=== PATIENT | female | born 1955 | race Caucasian/White ===

== ENCOUNTER 2021-02-24 14:03 | Outpatient (CLI) | payer BC, SELFPAY | END 2021-02-24 14:04 | disposition home or self-care (01) | LOC: ANHAUDIO 14:04 | PROVIDERS: PCP Family Medicine Adolescent Medicine; Visit Provider Family Medicine Adolescent Medicine | DX: H90.3 Sensorineural hearing loss, bilateral (principal) | CPT/HCPCS: 92557; 92567 ==

== ENCOUNTER → 2021-04-10 16:57 | Outpatient (CLI) | payer BC, SELFPAY ==
--- NOTE | ~2021-04-10 | MM_ITS ---
EXAMINATION: MM screening [facility] w [facility] HISTORY: Screening mammogram TECHNIQUE: Craniocaudal and mediolateral oblique 3-D tomosynthesis images were obtained and synthetic 2-D images were generated. CAD analysis was submitted and interpreted. COMPARISON: 03/19/2018, 03/31/2016 bilateral digital screening mammogram examinations BREAST PARENCHYMAL COMPOSITION: There are scattered areas of fibroglandular density. FINDINGS: Stable mild fibroglandular asymmetry. There is no evidence of suspicious mass, calcificatio n, or architectural distortion to suggest malignancy in either breast. There has been no suspicious i nterval change. IMPRESSION: 1. No mammographic evidence of malignancy. 2. Recommend routine screening mammography in one year. BI-RADS Category 2: Benign finding(s). Reviewed, dictated and finalized at location A.
== END ==
PROVIDERS: PCP Family Medicine Adolescent Medicine; Visit Provider Family Medicine Adolescent Medicine
DX: Z12.31 Encounter for screening mammogram for malignant neoplasm of breast (principal)
CPT/HCPCS: 77063; 77067

== ENCOUNTER 2022-06-03 14:35 | Outpatient (CLI) | payer BC, SELFPAY | END 2022-06-03 14:36 | disposition home or self-care (01) | LOC: ANHAUDIO 14:36 | PROVIDERS: PCP Family Medicine Adolescent Medicine; Visit Provider Physician Assistant | DX: H90.3 Sensorineural hearing loss, bilateral (principal) | CPT/HCPCS: 92557; 92567 ==

== ENCOUNTER → 2022-08-06 15:52 | Outpatient (CLI) | payer BC, SELFPAY ==
--- NOTE | ~2022-08-06 | MM_ITS ---
EXAMINATION: MM screening [facility] BI w [place] HISTORY: Screening TECHNIQUE: Craniocaudal and mediolateral oblique 3-D tomosynthesis images were obtained and synthetic 2-D images were generated. CAD analysis was submitted and interpreted. COMPARISON: Comparison to multiple prior studies sequentially, with oldest reviewed study dated 05/28. BREAST PARENCHYMAL COMPOSITION: There are scattered areas of fibroglandular density. FINDINGS: There is no evidence of suspicious mass, calcification, or architectural distortion to sugg est malignancy in either breast. There has been no suspicious interval change. IMPRESSION: 1. No mammographic evidence of malignancy. 2. Recommend routine screening mammography in one year. BI-RADS Category 1: Negative Reviewed, dictated and finalized at location A.
== END ==
PROVIDERS: PCP Family Medicine Adolescent Medicine; Visit Provider Family Medicine Adolescent Medicine
DX: Z12.31 Encounter for screening mammogram for malignant neoplasm of breast (principal)
CPT/HCPCS: 77063; 77067

== ENCOUNTER 2025-08-08 14:32 | Outpatient (CLI) | payer MEDICARE, SELFPAY ==
--- NOTE | ~2025-08-08 | MM_ITS ---
EXAMINATION: screening [facility] BI w [place] INDICATION: Asymptomatic, referred for screening mammogram COMPARISON: 08/06/2022 through 03/31/2016 TECHNIQUE: Digital Breast Tomosynthesis CC, MLO views of Both breasts were obtained with computer-aided detection to assist in interpretation of the study. FINDINGS: There are scattered areas of fibroglandular density. There is a group of microcalcifications in the outer central left breast at middle third. Elsewhere, there are no mammographic features of malignancy. IMPRESSION: 1. Left breast Incompletely characterized group of calcifications. 2. No evidence of malignancy in the Right breast. RECOMMENDATION: Left breast Diagnostic mammogram with true lateral, and appropriate magnification views. BI-RADS Category 0: Incomplete: Needs additional imaging evaluation. Reviewed, dictated and finalized at location B. IMPRESSION: 1. Left breast Incompletely characterized group of calcifications. 2. No evidence of malignancy in the Right breast. RECOMMENDATION: Left breast Diagnostic mammogram with true lateral, and appropriate magnificati on views. BI-RADS Category 0: Incomplete: Needs additional imaging evaluation.
== END 2025-08-08 14:33 | disposition home or self-care (01) ==
LOC: MICIMG 14:33
PROVIDERS: PCP Family Medicine Adolescent Medicine
DX: Z12.31 Encounter for screening mammogram for malignant neoplasm of breast (principal); R92.8 Other abnormal and inconclusive findings on diagnostic imaging of breast
CPT/HCPCS: 77063; 77067

== ENCOUNTER 2025-09-17 09:18 | Outpatient (CLI) | payer MEDICARE, SELFPAY ==
--- NOTE | ~2025-09-17 | DEXA_ITS ---
Bone Density Report Name: KATLIN HILLIARD Age: 70 Sex: Female Ethnicity: White Date of : 1955 Indication: postmenopausal; screening for osteoporosis; height loss; Referring Provider: SMITA, KAYLA Study: Bone densitometry was performed. Exam Date: September 17, 2025 Accession number: [id number] Bone Density: Region BMD T-score Z-score Classification AP Spine(L1-L4) 0.997 -0.5 1.7 Normal Femoral Neck (Left) 0.676 -1.6 0.3 Osteopenia Total Hip (Left) 0.708 -1.9 -0.4 Osteopenia Femoral Neck (Right) 0.699 -1.3 0.5 Osteopenia Total Hip (Right) 0.713 -1.9 -0.4 Osteopenia Total Hip Mean 0.710 -1.9 -0.4 Osteopenia World Health Organization criteria for BMD impression classify patients as: Normal (T-score at or above -1.0), Osteopenia (T-score between -1.0 and -2.5), or Osteoporosis (T-score at or below -2.5). 10-year Fracture Risk(1): Major Osteoporotic Fracture 9.8% Hip Fracture 1.4% Reported Risk Factors: [place] (), Neck BMD=0.676, BMI=28.8 (1) FRAX(R) Version 3.08. Fracture probability calculated for an untreated patient. Fracture probability may be lower if the patient has received treatment. Previous Exams: -- Region Exam Age BMD T-score BMD Change BMD Change Date g/cm2 vs Baseline vs Previous -- AP Spine (L1-L4) 09/17/2025 70 0.997 -0.5 -7.3%* -7.3%* 11/05/2014 59 1.076 0.3 Total Hip(Left) 09/17/2025 70 0.708 -1.9 -19.4%* -19.4%* 11/05/2014 59 0.878 -0.5 Total Hip(Right) 09/17/2025 70 0.713 -1.9 -16.1%* -16.1%* 11/05/2014 59 0.849 -0.8 -- *Denotes significance at 95% confidence level, LSC for AP Spine = 0.022 g/cm2, LSC for Total Hip = 0.027 g/cm2 Clinical Information Provided by Patient: Patient maximum height was 68 Menopause Age: 55 No regular weight bearing exercise Drinks caffeinated beverages Onset of menses at age 13 Number of children 0 Impression: The patient has low bone mass, based on the Left Total Hip T-score. The patient has an estimated ten-year risk of hip fracture of 1.4% and an estimated ten-year risk of major fracture of 9.8%, based on the WHO FRAX algorithm. The BMD for the AP Spine (L1-L4) decreased, changing by -7.3% since the last DXA exam. The BMD for the Total Hip(Left) decreased, changing by -19.4% since the last DXA exam. The BMD for the Total Hip(Right) decreased, changing by -16.1% since the last DXA exam. Discussion: BONE DENSITY IS LOW AT ONE OR MORE SKELETAL SITES. This patient's lowest T-score is low at one or more skeletal sites. It meets the World Health Organization's (WHO) criteria for ?low bone mass? (T-score between -1.0 and -2.5). The patient's 10-year risk of fracture as calculated by FRAX is less than the threshold where pharmacological therapy is recommended by the National Osteoporosis Foundation (NOF). However, all treatment decisions require clinical judgment and consideration of individual patient factors, including patient preferences, comorbidities, previous drug use, risk factors not captured in the FRAX model (e.g., frailty, falls, vitamin D deficiency, increased bone turnover, interval significant decline in bone density) and possible under or overestimation of fracture risk by FRAX. The patient should follow a healthful lifestyle (good nutrition with adequate calcium and vitamin D, and appropriate weight-bearing exercise). Follow-Up: Consider repeating this study in 2 years to reassess this patient's status, or sooner if there is some new clinical indication. Reported by: MIGUELINA on 09/17/2025 9:40:00 AM. Reviewed, dictated and finalized at location A.
== END 2025-09-17 09:19 | disposition home or self-care (01) ==
PROVIDERS: PCP Family Medicine
DX: Z78.0 Asymptomatic menopausal state (principal); Z13.820 Encounter for screening for osteoporosis; M85.852 Other specified disorders of bone density and structure, left thigh; M85.851 Other specified disorders of bone density and structure, right thigh
CPT/HCPCS: 77080

== ENCOUNTER 2025-10-09 09:05 | Outpatient (CLI) | payer MEDICARE, SELFPAY ==
--- NOTE | ~2025-10-09 | MM_ITS ---
EXAMINATION: MM diagnostic [facility] w [place] HISTORY: Additional imaging TECHNIQUE: Craniocaudal and mediolateral oblique 3-D tomosynthesis images were obtained and synthetic 2-D images were generated. CAD analysis was submitted and interpreted. COMPARISON: August 082021, 2020, and 2017. BREAST PARENCHYMAL COMPOSITION: Dense: The breasts are heterogeneously dense, which may obscure small masses. FINDINGS: No suspicious masses are seen. There is a group of calcifications, which span a distance of approximately 3 mm, and is located at 3:00 in the mid depth. Morphology is pleomorphic. No unexplained architectural distortion is seen. There are no skin or nipple abnormalities identified. There is no adenopathy seen on the images submitted. IMPRESSION: Suspicious calcifications for which stereotactic/tomographic guided core biopsy is recommended. BI-RADS 4 - Suspicious for malignancy. Tissue diagnosis is recommended. Reviewed, dictated and finalized at location A. OPERATOR
== END 2025-10-09 09:06 | disposition home or self-care (01) ==
LOC: MICIMG 09:06
PROVIDERS: PCP Obstetrics & Gynecology Gynecology; Visit Provider Obstetrics & Gynecology Gynecology
DX: R92.8 Other abnormal and inconclusive findings on diagnostic imaging of breast (principal)
CPT/HCPCS: 77061; 77065; G0279